=== PATIENT | female | born 1960 | race Caucasian/White ===

== ENCOUNTER 2020-01-30 15:24 | Emergency (ER) | payer OTHER, SELFPAY ==
--- NOTE | 2020-01-30 16:11 | ED_ITS ---
HPI - URI/Sore Throat General Chief Complaint: Upper Respiratory Symptoms Stated Complaint: SORETHROAT,COUGH Time Seen by Provider: 01/30/20 16:11 Source: patient Mode of arrival: ambulatory Limitations: no limitations History of Present Illness MD elicited complaint: cough and sore throat Onset (ago): day(s) (3) Consistency: constant Severity: mild Description of mucous: clear Able to tolerate fluids by mouth: Yes Exacerbating factors: swallowing Relieving factors: nothing Associated symptoms: sore throat and cough Treatments prior to arrival: none Related Data Allergies Allergy/AdvReac Type Severity Reaction Status Date / Time buspirone [BUSPIRONE] Allergy Intermediate CHEST PAIN Unverified 12/24/19 15:08 Penicillins Allergy Mild ITCHING Unverified 12/24/19 15:08 acetaminophen [Percocet] Allergy Unknown Verified 09/04/18 00:00 amlodipine Allergy Unknown Verified 09/04/18 00:00 glimepiride [GLIMEPIRIDE] Allergy Unknown UNKNOWN Unverified 12/24/19 15:08 mirtazapine [MIRTAZAPINE] Allergy Unknown UNKNOWN Unverified 12/24/19 15:08 morphine [MORPHINE] Allergy Unknown FEELS WEAK Unverified 12/24/19 15:08 penicillin G Allergy Unknown Verified 09/04/18 00:00 penicillin V Allergy Unknown Verified 07/24/18 00:00 pravastatin [Pravachol] Allergy Unknown Verified 07/24/18 00:00 sertraline [SERTRALINE] Allergy Unknown UNKNOWN Unverified 12/24/19 15:08 vilazodone [Viibryd] Allergy Unknown Verified 09/04/18 00:00 oxycodone [From PERCOCET] AdvReac Unknown MAKES HER Unverified 12/24/19 15:08 FEEL FUNNY wilner inhibitors Allergy Unknown Uncoded 07/24/18 00:00 Review of Systems Review of Systems: Constitutional : no Fever, no Chills, no fatigue, no Malaise ENT/Mouth : positive sore throat, positive runny nose Eyes: No Discharge Cardiovascular : No Chest Pain, No SOB Respiratory : pos Cough, No Sputum Gastrointestinal : No Nausea, No Vomiting, No Diarrhea Genitourinary : No Dysuria, No Urinary Frequency Musculoskeletal : positive Myalgia Skin : No rash Neuro : No Headache PMFSH Past Medical History Medical History (Updated 01/30/20 @ 16:23 by Diana Metzger DO) Anxiety Bronchitis Depression Diabetes HTN (hypertension) Surgical History (Updated 01/30/20 @ 16:23 by Diana Metzger DO) Previous back surgery Social History Social History (Updated 01/30/20 @ 16:22 by Diana Metzger DO) Smoking Status: Never smoker Use of substances other than those prescribed or required for medical reasons: No Advance Directives: No Advance Directives Information Provided: No Physical Exam Vital Signs: Appearance: Alert. Oriented X3. No acute distress. Eyes: Pupils equal, round and reactive to light. ENT: Pharynx normal. Neck: Normal inspection. Neck supple. CVS: Normal heart rate and rhythm. Pulses normal. Respiratory: No respiratory distress. Breath sounds normal. Abdomen: Soft and nontender. Skin: Skin warm and dry. Normal skin color. Normal skin turgor. Extremities: No lower extremity edema. No calf ttp Neuro: Oriented X 3. No motor deficit. No sensory deficit. MDM - URI/Sore Throat MDM Narrative Medical decision making narrative: 59 yo female with sore throat and cough x 3 days, no problems breathing, no sick contacts, given age and complaint will obtain CXR to r/o pneumonia and COVID swab, patient is not toxic and no resp distress Discharge Plan Discharge Clinical Impression: Upper respiratory infection Qualifiers: URI type: unspecified viral URI Qualified Code(s): J06.9 - Acute upper respiratory infection, unspecified Patient Disposition: Home, Self-Care Instructions: Viral Syndrome (ED), COVID-19 (Coronavirus Disease 2019) (ED) Additional Instructions: you were tested for COVID we will call you with results in 2 to 4 days, wear a mask, socially distance Referrals: Physician,Unknown [Primary Care Provider] - 2 days (if not better) Print Language: Tristanian
--- NOTE | 2020-01-30 16:17 | XR_ITS ---
EXAMINATION: XR chest 1V CLINICAL INFORMATION: Reason for Exam cough COMPARISON: 06/08/2019 TECHNIQUE: Portable chest x-ray marked 4:23 PM Tubes and lines: None Lungs and Maci: Both lungs are clear. Pleura: Normal. Costophrenic angles are sharp. No pneumothorax. Heart and mediastinum: The mediastinum is within normal limits.. Bones: Skeletal structures included are normal for patient's age. XR/XR chest 1V IMPRESSION: No radiographic evidence of pneumonia. If patient remain symptomatic may consider correlation with follow-up CT.
[2020-01-30 16:25] VITALS: BP 194/91; PULSE 81; RESP 18; TEMP 37.3; O2SAT 98; BMI 33.1
--- NOTE | 2020-01-30 17:00 | PC.NURSE ---
cxr performed, covid swab done, pt waiting for dc
[2020-01-30 17:08] VITALS: BP 163/80; PULSE 78; RESP 17; TEMP 37.1
--- NOTE | 2020-01-30 17:13 | PC.NURSE ---
awaiting cap sizer to discharge patient
== END 2020-01-30 17:22 | disposition home or self-care (01) ==
LOC: HO.ED 16:19
PROVIDERS: Emergency Provider Emergency Medicine
DX: J06.9 Acute upper respiratory infection, unspecified (principal); J02.9 Acute pharyngitis, unspecified; Z20.828 Contact with and (suspected) exposure to other viral communicable diseases
CPT/HCPCS: 71045; 87635; 99283; 99284

== ENCOUNTER 2020-02-29 15:02 | Outpatient (REF) | payer OTHER, SELFPAY ==
--- NOTE | 2020-02-29 15:11 | MM_ITS ---
EXAMINATION: MM SCREENING DIGITAL BREAST TOMOSYNTHESIS, BILATERAL CLINICAL INFORMATION: Screening. Asymptomatic. Prior history reduction mammoplasty 2007. The lifetime risk of breast cancer based on the Tyrer-Cuzick Model is 5%. COMPARISON: Mammography: 02/23/2019, 02/21/2018, 02/05/2017 TECHNIQUE: Digital breast tomosynthesis is performed in both the craniocaudal and mediolateral oblique views along with computer-aided detection (CAD). Synthesized 2D images are generated from the tomosynthesis. FINDINGS: There are scattered areas of fibroglandular density (ACR BI-RADS breast composition Category b). Parenchymal pattern is similar to prior studies. There is stable minor background scarring similar to prior exams consistent with the history of remote reduction mammoplasty. There is no developing density or interval mass or architectural abnormality or abnormal calcifications. The axilla are unremarkable. MM/MM tomosynthesis screening BI IMPRESSION: No mammographic evidence of malignancy. ASSESSMENT: BI-RADS 2: Benign RECOMMENDATION: Routine annual mammography screening. This patient's information was entered into a reminder system with a target due date for their next mammogram.
== END 2020-02-29 15:03 | disposition home or self-care (01) ==
LOC: HO.MAMMO 15:02
PROVIDERS: PCP Internal Medicine Sports Medicine; Visit Provider Internal Medicine Sports Medicine
DX: Z12.31 Encounter for screening mammogram for malignant neoplasm of breast (principal)
CPT/HCPCS: 77063; 77067

== ENCOUNTER 2020-06-08 14:36 | Outpatient (REF) | payer OTHER, SELFPAY ==
[2020-06-08 15:30] LABS: MANUAL DIFF FLAG NO
[2020-06-08 15:39] LABS: Basophils Percent Auto 0.5 % (0-2); Eosinophils Absolute Auto 0.2 X10*3/uL (0.0-0.4); Eosinophils Percent Auto 2.1 % (0-4); Hematocrit 39.9 % (37-47); Hemoglobin 12.4 g/dl (12.0-16.0); Imm Gran Abs Auto 0.03 X10*3/uL (0.00-0.03); Imm Gran Pct Auto 0.4 % (0.0-0.4); Lymphocytes Absolute Auto 1.9 X10*3/uL (1.2-4.9); Lymphocytes Percent Auto 24.3 % (20-40); Mean Corpuscular HGB Conc 31.1 g/dl (31.0-35.0); Mean Corpuscular Hemoglobin 28.2 pg (27.0-33.0); Mean Corpuscular Volume 90.9 fL (80-98); Mean Platelet Volume 12.1 fL (9.4-12.3); Monocytes Absolute Auto 0.6 X10*3/uL (0.1-1.2); Monocytes Percent Auto 7.9 % (2-11); Neutrophils Percent Auto 64.8 % (45-73); Platelet Count 253 X10*3/uL (160-400); Red Blood Count 4.39 X10*6/uL (4.20-5.50); Red Cell Distribution Width 13.8 % (11.0-16.0); White Blood Count 7.7 X10*3/uL (4.8-10.8)
[2020-06-08 15:58] LABS: Anion Gap 9 (12-20); Blood Urea Nitrogen 14 mg/dL (9-16); Carbon Dioxide 31 mmol/L (22-29); Chloride 100 mmol/L (96-108); Estimated Glomerular Filt Rate > 60; Glucose Random 216 mg/dL (60-115); Potassium 4.3 mmol/L (3.3-5.1); Sodium 136 mmol/L (135-145)
[2020-06-08 16:32] LABS: Erythrocyte Sedimentation Rate 28 MM/HR (0-20)
== END 2020-06-08 14:37 | disposition home or self-care (01) ==
LOC: HO.LAB 14:36
PROVIDERS: PCP Obstetrics & Gynecology; Visit Provider Psychiatry & Neurology Neurology
DX: R51.9 Headache, unspecified (principal)
CPT/HCPCS: 36415; 80051; 82565; 82947; 84520; 85025; 85652

== ENCOUNTER 2020-07-20 18:10 | Emergency (ER) | payer OTHER, SELFPAY ==
--- NOTE | 2020-07-20 | ECG_ITS ---
Test Reason : DIZZY Blood Pressure : / mmHG Vent. Rate : 064 BPM Atrial Rate : 064 BPM P-R Int : 146 ms QRS Dur : 082 ms QT Int : 404 ms P-R-T Axes : 025 023 033 degrees QTc Int : 416 ms Normal sinus rhythm Normal ECG When compared with ECG of 02-OCT-2019 16:28, No significant change was found Referred By: Generic ED Physician Electronically Signed By:PAGE GALEAS
--- NOTE | ~2020-07-20 | CT_ITS ---
EXAMINATION: CT HEAD WITHOUT CONTRAST CLINICAL INFORMATION: Headache COMPARISON: CT head 10/02/2019 TECHNIQUE: Contiguous axial imaging was performed from the skull base to vertex without intravenous administration of contrast. Coronal and sagittal reformatted images are performed at the CT scanner. [This CT examination was performed using dose optimization techniques as appropriate, variously including the following: *Automated exposure control *Adjustment of mA and/or kV according to patient size (this includes techniques or standardized protocols for targeted exams where dose is matched to indication/reason for exam; i.e. extremities or head) *Use of iterative reconstruction technique] DLP: 652 mGy-cm. FINDINGS: There is no evidence of acute intracranial hemorrhage or territorial infarction. No abnormal mass-effect or midline shift is seen. Mccarthy to white matter differentiation is well preserved. No extra-axial fluid collections are identified. The ventricles are normal in size. There is no abnormal attenuation within the brain parenchyma. There is no osseous abnormality. The mastoid air cells and visualized portions of the paranasal sinuses are well-aerated. CT/CT head/brain wo con IMPRESSION: No acute intracranial pathology.
[2020-07-20 19:01] VITALS: BP 176/79; PULSE 61; RESP 18; TEMP 36.5; O2SAT 98; BMI 32.8
[2020-07-20 19:22] LABS: Glucose Urine UA NEG (NEG); Leukocyte Esterase Urine NEG (NEG); Nitrite Urine NEG (NEG); Specific Gravity - Urine <= 1.005 (1.005-1.025); Urine Blood NEG (NEG); Urine Ketones NEG (NEG); Urine Protein NEG (NEG-TRACE)
[2020-07-20 19:31] LABS: Color Urine YELLOW
[2020-07-20 19:32] LABS: Appearance Urine CLEAR
--- NOTE | 2020-07-20 21:46 | PC.NURSE ---
PT TO ROOM WITH C/O DIZZINESS . PT ARRIVES ALERT, RESPIRATIONS EASY, N/L, SKIN W/D. PT CHG INTO GOWN AND AWAITING FOR MD'S EVAL.
[2020-07-20 21:56] VITALS: BP 156/59; PULSE 69
[2020-07-20 21:57] VITALS: BP 158/62; BP 168/77; PULSE 65; PULSE 72
[2020-07-20 21:58] VITALS: BP 168/77; PULSE 68; RESP 18; O2SAT 99
--- NOTE | 2020-07-20 22:03 | ED_ITS ---
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 Mode of arrival: ambulatory Limitations: no limitations History of Present Illness HPI Narrative: 60 yo female with HTN, DM, hx of headaches notes persistent w orsening headache R side of head for 6 months now with 2 months or so of dizziness and bilateral LE weakness - denies any recent workups, no CP/SOB MD elicited complaint: dizziness and other (headache) Onset (ago): month(s) (6) Timing: gradual onset and intermittent Severity: moderate Description: lightheadedness, off-balance and difficulty walking History of similar symptoms: No Exacerbating factors: movement/ambulation and change in body position Relieving factors: nothing Associated symptoms: other (headache) Related Data Previous Rx's Medication Instructions Recorded gpljmihkgo-jetzetmpxxiun-zhms 1 tab PO Q6H PRN #20 tab 07/21/20 cyclobenzaprine 10 mg PO TID PRN #14 tab 07/21/20 meclizine 25 mg PO TID PRN #20 tab 07/21/20 Allergies Allergy/AdvReac Type Severity Reaction Status Date / Time buspirone [BUSPIRONE] Allergy Intermediate CHEST PAIN Verified 01/30/20 16:25 Penicillins Allergy Mild ITCHING Verified 01/30/20 16:25 acetaminophen [Percocet] Allergy Unknown Vomiting Verified 01/30/20 16:25 amlodipine Allergy Unknown Chest Pain Verified 01/30/20 16:25 glimepiride [GLIMEPIRIDE] Allergy Unknown UNKNOWN Verified 01/30/20 16:25 mirtazapine [MIRTAZAPINE] Allergy Unknown UNKNOWN Verified 01/30/20 16:25 morphine [MORPHINE] Allergy Unknown FEELS WEAK Verified 01/30/20 16:25 penicillin G Allergy Unknown Itching Verified 01/30/20 16:25 penicillin V Allergy Unknown Itching Verified 01/30/20 16:25 pravastatin [Pravachol] Allergy Unknown Itching Verified 01/30/20 16:25 sertraline [SERTRALINE] Allergy Unknown UNKNOWN Verified 01/30/20 16:25 vilazodone [Viibryd] Allergy Unknown Itching Verified 01/30/20 16:25 oxycodone [From PERCOCET] AdvReac Unknown MAKES HER Verified 01/30/20 16:25 FEEL FUNNY wilner inhibitors Allergy Unknown Unknown Uncoded 01/30/20 16:25 Review of Systems Review of Systems: Constitutional : No Weight loss, No Fever, No Chills, No Fatigue, No Malaise ENT/Mouth : No sore throat, No Rhinorrhea Eyes: No Eye Pain, No Swelling, No Redness Cardiovascular : No Chest Pain, No SOB, No Dyspnea on Exertion, No Orthopnea, No Edema, No Palpitations Respiratory : No Cough, No Sputum, No Wheezing Gastrointestinal : No Nausea, No Vomiting, No Diarrhea, No Constipation, No abdominal Pain, No Hematochezia, No Melena Genitourinary : No Dysuria, No Urinary Frequency, No Hematuria, Musculoskeletal : No joint pain, No Myalgias, No Joint Swelling Skin : No Skin Lesions, No rash Neuro : No Weakness, No Numbness, pos Dizziness, pos Headache Psych : No Anxiety/Panic, No Depression Heme/Lymph: No Bruising, No Bleeding,No Lymphadenopathy Endocrine : No Polyuria, No Polydipsia All other systems reviewed and are negative [facility] Past Medical History Medical History Anxiety Bronchitis Depression Diabetes HTN (hypertension) Surgical History Previous back surgery Social History Social History Alcohol intake: never Smoking Status: Never smoker Smoked in Last 30 Days: No Use of substances other than those prescribed or required for medical reasons: No Advance Directives: No Advance Directives Information Provided: No Physical Exam Vital Signs: Vital Signs: Last Vital Signs Temp 98.4 F 07/20/20 23:35 Pulse 58 07/20/20 23:35 Resp 16 07/20/20 23:35 BP 131/59 L 07/20/20 23:35 Pulse Ox 99 07/20/20 23:35 Body Mass Index 32.8 Appearance: Alert. Oriented X3. No acute distress. Eyes: Pupils equal, round and reactive to light. ENT: Pharynx normal. Neck: Normal inspection. Neck supple. CVS: Normal heart rate and rhythm. Pulses normal. Respiratory: No respiratory distress. Breath sounds normal. Abdomen: Soft and nontender. Skin: Skin warm and dry. Normal skin color. Normal skin turgor. Extremities: No lower extremity edema. No calf ttp Neuro: Oriented X 3. No motor deficit. No sensory deficit. Course Course Course Narrative: orthostatic VS negative neagative workup the patient feels much better, stable for DC MDM - Dizziness MDM Narrative Medical decision making narrative: 60 yo female with HTN, DM here with 6 months of headaches now with dizziness x 2+ months feeling it is hard to walk and then noting that she feels off balance - at this time will need labs, EKG, ortho VS, CT head for mass, PO pain control dispo per results and findings. Lab Data Result diagrams: 07/20/20 23:54 07/20/20 23:54 Labs: Lab Results 07/20/20 07/20/20 07/20/20 Range/Units 19:12 23:54 23:54 WBC 8.9 (4.8-10.8) X10*3/uL RBC 4.64 (4.20-5.50) X10*6/uL Hgb 13.1 (12.0-16.0) g/dl Hct 41.6 (37-47) % MCV 89.7 (80-98) fL MCH 28.2 (27.0-33.0) pg MCHC 31.5 (31.0-35.0) g/dl RDW 13.9 (11.0-16.0) % Plt Count 258 (160-400) X10*3/uL MPV 11.3 (9.4-12.3) fL Immature Gran % (Auto) 0.3 (0.0-0.4) % Neut % (Auto) 63.8 (45-73) % Lymph % (Auto) 26.6 (20-40) % [facility] % (Auto) 7.6 (2-11) % Eos % (Auto) 1.1 (0-4) % Baso % (Auto) 0.6 (0-2) % Lymph # (Auto) 2.4 (1.2-4.9) X10*3/uL [facility] # (Auto) 0.7 (0.1-1.2) X10*3/uL Eos # (Auto) 0.1 (0.0-0.4) X10*3/uL Baso # (Auto) 0.1 (0.0-0.2) X10*3/uL Abs Immat Gran (auto) 0.03 (0.00-0.03) X10*3/uL Absolute Neuts (auto) 5.7 (2.0-8.3) X10*3/uL Absolute Nucleated RBC 0.000 (0.0-0.012) X10*3/uL Nucleated RBC % (auto) 0.0 (0.0-0.2) /100WBC Hold Blue Top SEE NOTE Sodium (135-145) mmol/L Potassium (3.3-5.1) mmol/L Chloride (96-108) mmol/L Carbon Dioxide (22-29) mmol/L Anion Gap (12-20) BUN (9-16) mg/dL Creatinine (0.5-1.4) mg/dL Estim Creat Clear Calc Estimated GFR Random Glucose (60-115) mg/dL Calcium (8.4-10.2) mg/dL Urine Color YELLOW Urine Appearance CLEAR Urine pH 6.0 (5.0-8.0) Ur Specific [place] <= 1.005 (1.005-1.025) Urine Protein NEG (NEG-TRACE) MG/DL Urine Glucose (UA) NEG (NEG) MG/DL Urine Ketones NEG (NEG) MG/DL Urine Blood NEG (NEG) Urine Nitrite NEG (NEG) Ur Leukocyte Esterase NEG (NEG) 07/20/20 Range/Units 23:54 WBC (4.8-10.8) X10*3/uL RBC (4.20-5.50) X10*6/uL Hgb (12.0-16.0) g/dl Hct (37-47) % MCV (80-98) fL MCH (27.0-33.0) pg MCHC (31.0-35.0) g/dl RDW (11.0-16.0) % Plt Count (160-400) X10*3/uL MPV (9.4-12.3) fL Immature Gran % (Auto) (0.0-0.4) % Neut % (Auto) (45-73) % Lymph % (Auto) (20-40) % [facility] % (Auto) (2-11) % Eos % (Auto) (0-4) % Baso % (Auto) (0-2) % Lymph # (Auto) (1.2-4.9) X10*3/uL [facility] # (Auto) (0.1-1.2) X10*3/uL Eos # (Auto) (0.0-0.4) X10*3/uL Baso # (Auto) (0.0-0.2) X10*3/uL Abs Immat Gran (auto) (0.00-0.03) X10*3/uL Absolute Neuts (auto) (2.0-8.3) X10*3/uL Absolute Nucleated RBC (0.0-0.012) X10*3/uL Nucleated RBC % (auto) (0.0-0.2) /100WBC Hold Blue Top Sodium 140 (135-145) mmol/L Potassium 4.2 (3.3-5.1) mmol/L Chloride 104 (96-108) mmol/L Carbon Dioxide 26 (22-29) mmol/L Anion Gap 14 (12-20) BUN 11 (9-16) mg/dL Creatinine 0.74 (0.5-1.4) mg/dL Estim Creat Clear Calc 86.1 Estimated GFR > 60 Random Glucose 197 H (60-115) mg/dL Calcium 9.6 (8.4-10.2) mg/dL Urine Color Urine Appearance Urine pH (5.0-8.0) Ur Specific [place] (1.005-1.025) Urine Protein (NEG-TRACE) MG/DL Urine Glucose (UA) (NEG) MG/DL Urine Ketones (NEG) MG/DL Urine Blood (NEG) Urine Nitrite (NEG) Ur Leukocyte Esterase (NEG) ECG Data Attestation: I personally reviewed and interpreted this ECG as follows: ECG interpretation date: 07/20/20 ECG interpretation time: 22:05 Interpretation: Rate: 64 Rhythm: NSR Powell: normal Normal P waves. Normal DEZ. Normal QRS complex. ST T wave : normal no STEVEN qTC: normal prior studies: no acute ischemia The study has been interpreted contemporaneously by me. . Discharge Plan Discharge Clinical Impression: Dizziness Acute tension headache Qualifiers: Intractability: not intractable Qualified Code(s): G44.209 - Tension-type headache, unspecified, not intractable Patient Disposition: Home, Self-Care Instructions: Acute Headache (ED), Dizziness (ED) Additional Instructions: return to ED for any worsening symptoms or concerns Prescriptions: New cyclobenzaprine 10 mg tablet 10 mg PO TID PRN (Reason: muscle spasm) Qty: 14 RF: 0 xicwlyvjzs-fajgdwzddxqdj-aikd 50-325-40 mg tablet 1 tab PO Q6H PRN (Reason: pain) Qty: 20 RF: 0 meclizine 25 mg tablet 25 mg PO TID PRN (Reason: dizziness) Qty: 20 RF: 0 Referrals: Andrea Sommer MD [Primary Care Provider] - 2 days (if not better) Print Language: Mongolian
[2020-07-20] MEDS: Butalb/Acetamin/Caff 50/325/40 TABLET 1 TAB PO (23:09)
[2020-07-20 23:35] VITALS: BP 131/59; PULSE 58; RESP 16; TEMP 36.9; O2SAT 99
--- NOTE | 2020-07-20 23:38 | PC.NURSE ---
LABS DRAWN AT THIS TIME.
[2020-07-21 00:03] LABS: MANUAL DIFF FLAG NO
[2020-07-21 00:04] LABS: Basophils Absolute Auto 0.1 X10*3/uL (0.0-0.2); Basophils Percent Auto 0.6 % (0-2); Eosinophils Absolute Auto 0.1 X10*3/uL (0.0-0.4); Eosinophils Percent Auto 1.1 % (0-4); Hematocrit 41.6 % (37-47); Hemoglobin 13.1 g/dl (12.0-16.0); Imm Gran Abs Auto 0.03 X10*3/uL (0.00-0.03); Imm Gran Pct Auto 0.3 % (0.0-0.4); Lymphocytes Absolute Auto 2.4 X10*3/uL (1.2-4.9); Lymphocytes Percent Auto 26.6 % (20-40); Mean Corpuscular HGB Conc 31.5 g/dl (31.0-35.0); Mean Corpuscular Hemoglobin 28.2 pg (27.0-33.0); Mean Corpuscular Volume 89.7 fL (80-98); Mean Platelet Volume 11.3 fL (9.4-12.3); Monocytes Absolute Auto 0.7 X10*3/uL (0.1-1.2); Monocytes Percent Auto 7.6 % (2-11); Neutrophils Absolute Auto 5.7 X10*3/uL (2.0-8.3); Neutrophils Percent Auto 63.8 % (45-73); Platelet Count 258 X10*3/uL (160-400); Red Blood Count 4.64 X10*6/uL (4.20-5.50); Red Cell Distribution Width 13.9 % (11.0-16.0); White Blood Count 8.9 X10*3/uL (4.8-10.8)
[2020-07-21 00:30] LABS: Anion Gap 14 (12-20); Blood Urea Nitrogen 11 mg/dL (9-16); Calcium 9.6 mg/dL (8.4-10.2); Carbon Dioxide 26 mmol/L (22-29); Chloride 104 mmol/L (96-108); Creatinine Clr Calc Pharmacy 86.1; Estimated Glomerular Filt Rate > 60; Glucose Random 197 mg/dL (60-115); Potassium 4.2 mmol/L (3.3-5.1); Sodium 140 mmol/L (135-145)
== END 2020-07-21 01:10 | disposition home or self-care (01) ==
PROVIDERS: Emergency Provider Emergency Medicine; PCP Internal Medicine
DX: R42 Dizziness and giddiness (principal); G44.209 Tension-type headache, unspecified, not intractable; I10 Essential (primary) hypertension; E11.9 Type 2 diabetes mellitus without complications; Z79.899 Other long term (current) drug therapy
CPT/HCPCS: 36415; 70450; 80048; 81003; 85025; 93005; 99284; 99285

== ENCOUNTER → 2020-07-26 13:55 | Outpatient (REF) | payer OTHER, SELFPAY ==
--- NOTE | 2020-07-26 14:00 | CA_ITS ---
Transthoracic Echocardiogram Patient (Last, First, Middle): Nina Cooper V Gender: Female Date of : 1960 Age: 60 Procedure Date: 07/26/2020 Procedure Type: Transthoracic Echocardiogram Location: OP Height: 165.1 cm Weight: 86.64 kg BSA: 1.94 m2 Heart Rate: bpm BP: 134 / 80 mmHg Discharge Rn: Referring MD: Dwayne Curry MD Symptoms: I34.0 NON RHEUMATIC MITRAL REGURG I10 HTN Study Quality: Good ECG Rhythm: Sinus Conclusions: - The left ventricular systolic function is normal. The visually estimated ejection fraction is between 60-65%. - There is mild mitral valve regurgitation. Findings Left Ventricle Normal left ventricular cavity size. There is mildly increased left ventricular wall thickness. The left ventricular systolic function is normal. The visually estimated ejection fraction is between 60-65%. There is no evidence of regional wall motion abnormalities. Diastolic function is indeterminate on the basis of available data. Right Ventricle Normal right ventricular cavity size and systolic function. Atria Both atria are normal in size. Aortic Valve There is a normal trileaflet aortic valve. There is no aortic valve stenosis. There is no aortic valve regurgitation. Mitral Valve The mitral valve appears normal. There is mild mitral valve regurgitation. There is no mitral valve stenosis. Pulmonic Valve The pulmonic valve was not well visualized. Tricuspid Valve Normal tricuspid valve structure. There is trace tricuspid valve regurgitation. The pulmonary artery systolic pressure is normal. Great Vessels The aortic annulus, sinuses of valsalva, and asc aorta are normal in size. Venous The inferior vena cava is normal in size and collapses greater than 50% with inspiration. Pericardium/Pleural There is no evidence of pericardial effusion. Prior Study Comparison Changes noted compared to prior study dated: 07/16/2018. Mitral regurgitation appears less prominent. Measurements 2D Linear Measurements IVSd: 1.08 0.6-0.9/0.6-1.0 cm LVIDd: 4.91 3.9-5.3/4.2-5.9 cm LVIDd Index: 2.53 2.4-3.2/2.2-3.1 cm/m2 LVIDs: 2.52 2.0-3.6 cm LVPWd: 1.06 0.7-1.1 cm Ao Root: 2.90 2.1-3.5 cm LA Diam: 4.10 2.7-3.8/3.0-4.0 cm LAIDs Index: 2.11 1.5-2.3 cm/m2 LV Mass: 241.31 67-162/88-224 g LV Mass Index: 124.39 43-95/49-115 g/m2 LVOT Diam: 2.10 3.0+(-)1.3 cm Mitral Valve MV Pk E: 0.65 MV PK A: 0.98 MV Decel Time: 201.00 E/A: 0.70 PHT: 59.00 MVA PHT: 3.73 Decel [place]: 3.21 Aortic Valve AoV Pk Claudio: 1.39 AoV Mn Claudio: 0.76 AoV VTI: 0.32 AoV Pk Grad: 8.00 Aov Mn Grad: 3.00 CK Cont.VTI: 2.60 LVOT LVOT Pk Claudio: 0.98 LVOT Mn Claudio: 0.59 LVOT VTI: 0.24 LVOT Pk Grad: 4.00 LVOT Mn Grad: 2.00 LVOT Diam: 2.10 LVOT Area: 3.46 Diastolic Function MV Pk E: 0.65 MV Pk A: 0.98 E/A: 0.70 Tricuspid Valve TR Pk Claudio: 2.45 TR Pk Grad: 24.00 RA Press: 3.00 RVSP: 27.00 Great Vessels Aorta Ao Root-2D: 2.90 2.0-3.7 cm Ao Asc: 2.90 2.1-3.4 cm Pulmonary Valve PV Pk Claudio: 0.96 Peak PV Grad: 4.00 Updated in Other Vendor System with Status of Final Dwayne Curry MD electronically signed on 07/27/2020 12:09:30 PM with status of Final
== END ==
LOC: HO.CARD 13:55
PROVIDERS: PCP Internal Medicine Sports Medicine; Visit Provider Internal Medicine
DX: I34.0 Nonrheumatic mitral (valve) insufficiency (principal); I10 Essential (primary) hypertension
CPT/HCPCS: 93306

== ENCOUNTER → 2020-08-02 13:50 | Outpatient (BNVA) | payer OTHER, SELFPAY | PROVIDERS: PCP Internal Medicine; Visit Provider Internal Medicine | DX: I34.0 Nonrheumatic mitral (valve) insufficiency (principal); E11.8 Type 2 diabetes mellitus with unspecified complications; I10 Essential (primary) hypertension; E78.5 Hyperlipidemia, unspecified | CPT/HCPCS: 99212 ==

== ENCOUNTER → 2020-12-06 14:01 | Outpatient (BNVA) | payer OTHER, SELFPAY | PROVIDERS: PCP Internal Medicine; Visit Provider Internal Medicine | DX: I34.0 Nonrheumatic mitral (valve) insufficiency (principal); I10 Essential (primary) hypertension; E78.5 Hyperlipidemia, unspecified; E11.8 Type 2 diabetes mellitus with unspecified complications | CPT/HCPCS: 93005; 99212 ==

== ENCOUNTER → 2021-03-14 13:49 | Outpatient (BNVA) | payer OTHER, SELFPAY | PROVIDERS: PCP Internal Medicine; Referring Provider Internal Medicine; Visit Provider Internal Medicine | DX: E78.5 Hyperlipidemia, unspecified (principal); I34.0 Nonrheumatic mitral (valve) insufficiency; I10 Essential (primary) hypertension; E11.8 Type 2 diabetes mellitus with unspecified complications | CPT/HCPCS: 99212 ==

== ENCOUNTER 2021-03-16 12:55 | Outpatient (REF) | payer OTHER, SELFPAY ==
--- NOTE | ~2021-03-16 | MM_ITS ---
EXAMINATION: MM SCREENING DIGITAL BREAST TOMOSYNTHESIS, BILATERAL CLINICAL INFORMATION: Screening. Asymptomatic. The lifetime risk of breast cancer based on the Tyrer-Cuzick Model is 5.7%. COMPARISON: Mammography: February 29, 2020 and studies dating back to December 28, 2013 TECHNIQUE: Digital breast tomosynthesis is performed in both the craniocaudal and mediolateral oblique views along with computer-aided detection (CAD). Synthesized 2D images are generated from the tomosynthesis. FINDINGS: The breasts are almost entirely fatty (ACR BI-RADS breast composition Category a). There are no significant masses, abnormal calcifications, or other abnormalities. MM/MM tomosynthesis screening BI IMPRESSION: There are no significant changes from prior study. ASSESSMENT: BI-RADS 1: Negative RECOMMENDATION: Routine annual mammography screening. This patient's information was entered into a reminder system with a target due date for their next mammogram.
== END 2021-03-16 12:56 | disposition home or self-care (01) ==
LOC: HO.MAMMO 12:55
PROVIDERS: Visit Provider Internal Medicine
DX: Z12.31 Encounter for screening mammogram for malignant neoplasm of breast (principal)
CPT/HCPCS: 77063; 77067

== ENCOUNTER 2021-03-21 18:04 | Outpatient (REF) | payer OTHER, SELFPAY ==
[2021-03-21 18:47] LABS: Influenza A PCR NEGATIVE (Negative); Influenza B PCR NEGATIVE (Negative); Resp Syncy Virus RNA Qual PCR NEGATIVE (Negative); SARS COV2 PCR INHOUSE POSITIVE (Negative)
== END 2021-03-21 18:05 | disposition home or self-care (01) ==
LOC: HO.LNP 18:04
PROVIDERS: Visit Provider Internal Medicine
DX: Z20.822 Contact with and (suspected) exposure to COVID-19 (principal); R43.9 Unspecified disturbances of smell and taste
CPT/HCPCS: 0241U

== ENCOUNTER 2021-03-29 22:22 | Emergency (ER) | payer OTHER, SELFPAY ==
--- NOTE | ~2021-03-29 | XR_ITS ---
EXAMINATION: XR CHEST CLINICAL INFORMATION: Dyspnea. COMPARISON: Chest radiograph dated from 01/30/2020. TECHNIQUE: PA view of the chest was obtained. FINDINGS: Unchanged appearance of the cardiomediastinal silhouette. Platelike opacities in the lower lobes are in favor to represent subsegmental atelectasis or parenchymal scarring. Mild increased interstitial markings. No focal airspace opacities, pleural effusions or pneumothorax. No acute osseous abnormalities. XR/XR chest 1V IMPRESSION: Mildly increased interstitial markings which could be related with an atypical infectious or inflammatory process of the small airways in the appropriate clinical context.
--- NOTE | 2021-03-29 22:47 | ECG_ITS ---
Test Reason : CHEST PAIN Blood Pressure : / mmHG Vent. Rate : 084 BPM Atrial Rate : 084 BPM P-R Int : 136 ms QRS Dur : 078 ms QT Int : 362 ms P-R-T Axes : 047 -09 032 degrees QTc Int : 427 ms Artifact in tracing Normal sinus rhythm Likely normal EKG When compared with ECG of 20-JUL-2020 21:58, No significant changes seen Referred By: Generic ED Physician Electronically Signed By:PAGE GALEAS
[2021-03-29 22:54] VITALS: BP 136/66; PULSE 90; RESP 20; TEMP 37.9; O2SAT 96; BMI 31.6
--- NOTE | 2021-03-30 00:18 | ED.URI ---
HPI - URI/Sore Throat General Chief Complaint: Upper Respiratory Symptoms Stated Complaint: flu like symptoms Time Seen by Provider: 03/29/21 23:03 Source: patient Mode of arrival: ambulatory Limitations: no limitations History of Present Illness HPI Narrative: Patient 61 years old diabetic not vaccinated against COVID-19 been sick since 03/19 got checked positive for COVID-19 on 03/21 since then patient has been coughing her is also sick with same duration slight shortness of breath on exertion low-grade fever saturating 96% at room air. Patient does have history of bronchitis off and on no diagnosed lung conditions Related Data Home Medications Medication Instructions Recorded Confirmed clonazepam 1 mg tablet 1 mg PO BEDTIME PRN 08/02/20 03/14/21 metformin 500 mg tablet 500 mg PO BID 08/02/20 03/14/21 nebivolol 10 mg tablet 10 mg PO DAILY tab 08/02/20 03/14/21 Previous Rx's Medication Instructions Recorded albuterol sulfate 90 mcg/actuation 1 inh INHALATION QID #6.7 g 03/21/21 aerosol inhaler azithromycin 250 mg tablet See Rx Instructions PO .COMPLEX #6 03/21/21 tab albuterol sulfate 90 mcg/actuation 2 puff INHALATION Q4-6H PRN #8.5 g 03/30/21 aerosol inhaler (ProAir HFA) codeine 10 mg-guaifenesin 100 mg/5 10 ml PO Q6H PRN #237 ml 03/30/21 mL oral liquid dexamethasone 6 mg tablet 6 mg PO DAILY #7 tab 03/30/21 (Decadron) Allergies Allergy/AdvReac Type Severity Reaction Status Date / Time Penicillins Allergy Mild ITCHING Verified 03/29/21 22:43 glimepiride [GLIMEPIRIDE] Allergy Unknown UNKNOWN Verified 03/29/21 22:43 mirtazapine [MIRTAZAPINE] Allergy Unknown UNKNOWN Verified 03/29/21 22:43 pravastatin [Pravachol] Allergy Unknown Itching Verified 03/29/21 22:43 sertraline [SERTRALINE] Allergy Unknown UNKNOWN Verified 03/29/21 22:43 vilazodone [Viibryd] Allergy Unknown Itching Verified 03/29/21 22:43 buspirone [BUSPIRONE] AdvReac Intermediate CHEST PAIN Verified 03/29/21 22:43 amlodipine AdvReac Unknown Chest Pain Verified 03/29/21 22:43 morphine [MORPHINE] AdvReac Unknown FEELS WEAK Verified 03/29/21 22:43 oxycodone [From PERCOCET] AdvReac Unknown MAKES HER Verified 03/29/21 22:43 FEEL FUNNY wilner inhibitors Allergy Unknown Unknown Uncoded 03/14/21 13:58 Review of Systems Review of Systems: Yes all other systems are reviewed and are negative [facility] Past Medical History Medical History Anxiety Bronchitis Depression Diabetes Essential hypertension HTN (hypertension) Non-rheumatic mitral regurgitation Other and unspecified hyperlipidemia Type 2 diabetes mellitus with unspecified complications Surgical History History of tubal ligation Previous back surgery Family History Family History Father HTN (hypertension) Stroke Mother HTN (hypertension) Stroke Social History Social History Alcohol intake: never Patient Tobacco Use Status: Never used Tobacco Advance Directives: No Physical Exam Vital Signs: Vital Signs: Last Vital Signs Temp 100.2 F 03/29/21 22:54 Pulse 90 03/29/21 22:54 Resp 20 03/29/21 22:54 BP 136/66 03/29/21 22:54 Pulse Ox 96 03/29/21 22:54 BMI result Body Mass Index 31.6 Appearance: Alert. Oriented X3. No acute distress. Frequent dry cough Eyes: No pallor/ icterus ENT: Pharynx normal. Oral Mucosa moist Neck: Normal inspection. Neck supple. CVS: Normal heart rate and rhythm. Pulses normal. Respiratory: No respiratory distress. Equal air entry bilateral, no wheezing/rales/rhonchi Abdomen: Soft and nontender. Bowel sounds are present, Skin: Skin warm and dry. Normal skin color. Normal skin turgor. Extremities: No lower extremity edema. No calf tenderness Neuro: Oriented X 3. No motor deficit. MDM - URI/Sore Throat MDM Narrative Medical decision making narrative: Patient with stable vitals and had stable labs in the past COVID-19 positive already 11 day of illness chest x-ray showed mild infiltrate. At this time patient is saturating 96% at room air does not look like any distress will discharge patient home on Decadron and advised to use albuterol inhaler return to the ER if worsening of shortness of breath keep social distancing Lab Data Attestation: I reviewed the patient's lab results. Labs: Lab Results 03/30/21 Range/Units 00:30 POC Glucose 126 H (60-115) mg/dL Discharge Plan Discharge Clinical Impression: COVID-19 Patient Disposition: Home, Self-Care Instructions: COVID-19 (Coronavirus Disease 2019) (ED) Additional Instructions: Keep social distancing Medication as prescribed Increase metformin to 2 tablets in the morning and 1 tablet in the evening if blood sugar is higher than 200 while taking Decadron Report to the ER if worsening of shortness of breath Mantener el distanciamiento social Medicaci?n seg?n lo prescrito Aumente la metformina a 2 comprimidos por la ma?key y 1 comprimido por la noche si el nivel de az?car en davey es superior a 200 mientras heather Decadron. Informe a la marlyn de emergencias si empeora la dificultad para respirar Prescriptions: New dexamethasone [Decadron] 6 mg tablet 6 mg PO DAILY Qty: 7 RF: 0 codeine-guaifenesin 10-100 mg/5 mL liquid 10 ml PO Q6H PRN (Reason: cough) Qty: 237 RF: 0 albuterol sulfate [ProAir HFA] 90 mcg/actuation HFA aerosol inhaler 2 puff inhalation Q4-6H PRN (Reason: shortness of breath or wheezing) Qty: 8.5 RF: 0 No Action azithromycin 250 mg tablet See Rx Instructions PO .COMPLEX Qty: 6 RF: 0 albuterol sulfate 90 mcg/actuation HFA aerosol inhaler 1 inh inhalation QID Qty: 6.7 RF: 1 Bystolic 10 mg tablet 10 mg PO DAILY RF: 0 clonazepam 1 mg tablet 1 mg PO BEDTIME PRNRF: 0 metformin 500 mg tablet 500 mg PO BID RF: 0
[2021-03-30 00:36] LABS: Glucose, Whole Blood 126 mg/dL (60-115)
[2021-03-30] MEDS: Benzonatate 100 MG CAPSULE 200 MG PO (01:06)
[2021-03-30] MEDS: dexAMETHasone 6 MG TABLET PO (01:07)
[2021-03-30] MEDS: Albuterol Sulfate 90 MCG 8 GM INHALER 4 PUFF INHALE (01:07)
== END 2021-03-30 01:21 | disposition home or self-care (01) ==
PROVIDERS: Emergency Provider Internal Medicine; PCP Internal Medicine
DX: U07.1 COVID-19 (principal); R05.9 Cough, unspecified; R50.9 Fever, unspecified; Z79.899 Other long term (current) drug therapy
CPT/HCPCS: 71045; 82947; 93005; 99283; 99284; J8540

== ENCOUNTER 2021-04-03 10:56 | Emergency (ER) | payer OTHER, SELFPAY ==
--- NOTE | ~2021-04-03 | XR_ITS ---
EXAMINATION: XR CHEST CLINICAL INFORMATION: Shortness of breath. COMPARISON: 03/29/2021 portable chest. TECHNIQUE: Frontal view of the chest was obtained. FINDINGS: No significant abnormality is noted involving the heart, lungs, mediastinum, bony thorax or soft tissues. XR/XR chest 1V IMPRESSION: No acute cardiopulmonary process.
[2021-04-03 11:31] VITALS: BP 180/79; PULSE 74; RESP 18; TEMP 37.1; O2SAT 97; BMI 31.6
--- NOTE | 2021-04-03 12:41 | ED.URI ---
HPI - URI/Sore Throat General Chief Complaint: Upper Respiratory Symptoms Stated Complaint: COVID Symptoms Time Seen by Provider: 04/03/21 12:41 Source: patient Mode of arrival: ambulatory Limitations: no limitations History of Present Illness HPI Narrative: 61-year-old female past medical history significant for anxiety, depression, hypertension, diabetes presenting to the emergency department with complaints of shortness of breath and dizziness X 14 days. Patient tells me was is COVID positive, and she just wanted to ensure that she was okay. She tells me symptoms have been present for a while and they are better than before. She was confirmed positive on 03/21/2021 she states. She tells me that her is very sick with COVID-19, and she has been very worried and anxious recently. She tells me that she knows that her blood pressure is high, she has been taking her pills. He tells me that all these symptoms are worse now because she is also anxious. She reports that the shortness of breath is worse with exertion. She tells me at times she feels dizzy, she is not dizzy at this moment. She denies chest pain, pleuritic chest pain, pain with deep inspiration, fevers, chills, nausea, vomiting, abdominal pain, calf pain, weakness, dizziness, vision changes, headache. MD elicited complaint: other (Fatigue) Pertinent past history: other (COVID + on 03/21) Onset (ago): day(s) (14) Consistency: constant and improved Severity: mild Able to tolerate fluids by mouth: Yes Exacerbating factors: nothing Relieving factors: nothing Context: sick contacts ( is sick ) Associated symptoms: shortness of breath Treatments prior to arrival: cold medicine and other (steroids) Related Data Home Medications Medication Instructions Recorded Confirmed clonazepam 1 mg tablet 1 mg PO BEDTIME PRN 08/02/20 03/14/21 metformin 500 mg tablet 500 mg PO BID 08/02/20 03/14/21 nebivolol 10 mg tablet 10 mg PO DAILY tab 08/02/20 03/14/21 Previous Rx's Medication Instructions Recorded albuterol sulfate 90 mcg/actuation 1 inh INHALATION QID #6.7 g 03/21/21 aerosol inhaler azithromycin 250 mg tablet See Rx Instructions PO .COMPLEX #6 03/21/21 tab albuterol sulfate 90 mcg/actuation 2 puff INHALATION Q4-6H PRN #8.5 g 03/30/21 aerosol inhaler (ProAir HFA) codeine 10 mg-guaifenesin 100 mg/5 10 ml PO Q6H PRN #237 ml 03/30/21 mL oral liquid dexamethasone 6 mg tablet 6 mg PO DAILY #7 tab 03/30/21 (Decadron) Allergies Allergy/AdvReac Type Severity Reaction Status Date / Time Penicillins Allergy Mild ITCHING Verified 04/03/21 11:31 glimepiride [GLIMEPIRIDE] Allergy Unknown UNKNOWN Verified 04/03/21 11:31 mirtazapine [MIRTAZAPINE] Allergy Unknown UNKNOWN Verified 04/03/21 11:31 pravastatin [Pravachol] Allergy Unknown Itching Verified 04/03/21 11:31 sertraline [SERTRALINE] Allergy Unknown UNKNOWN Verified 04/03/21 11:31 vilazodone [Viibryd] Allergy Unknown Itching Verified 04/03/21 11:31 buspirone [BUSPIRONE] AdvReac Intermediate CHEST PAIN Verified 04/03/21 11:31 amlodipine AdvReac Unknown Chest Pain Verified 04/03/21 11:31 morphine [MORPHINE] AdvReac Unknown FEELS WEAK Verified 04/03/21 11:31 oxycodone [From PERCOCET] AdvReac Unknown MAKES HER Verified 04/03/21 11:31 FEEL FUNNY wilner inhibitors Allergy Unknown Unknown Uncoded 03/14/21 13:58 Review of Systems Review of Systems: Constitutional : No Weight loss, No Fever, No Chills, + Fatigue, + Malaise ENT/Mouth : No sore throat, No Rhinorrhea Eyes: No Eye Pain, No Swelling, No Redness Cardiovascular : No Chest Pain, + SOB, No Dyspnea on Exertion, No Orthopnea, No Edema, No Palpitations Respiratory : No Cough, No Sputum, No Wheezing Gastrointestinal : No Nausea, No Vomiting, No Diarrhea, No Constipation, No abdominal Pain, No Hematochezia, No Melena Genitourinary : No Dysuria, No Urinary Frequency, No Hematuria, Musculoskeletal : No joint pain, No Myalgias, No Joint Swelling Skin : No Skin Lesions, No rash Neuro : No Weakness, No Numbness, + Dizziness, No Headache Psych : No Anxiety/Panic, No Depression All other systems reviewed and are negative Yes all other systems are reviewed and are negative [facility] Past Medical History Attestation statement: The following information was validated with the patient. Source: old records reviewed and nursing notes reviewed Medical History Anxiety Bronchitis Depression Diabetes Essential hypertension HTN (hypertension) Non-rheumatic mitral regurgitation Other and unspecified hyperlipidemia Type 2 diabetes mellitus with unspecified complications Surgical History History of tubal ligation Previous back surgery Family History Family History Father HTN (hypertension) Stroke Mother HTN (hypertension) Stroke Social History Social History Alcohol intake: never Patient Tobacco Use Status: Never used Tobacco Advance Directives: No Advance Directives Information Provided: No Patient : No Physical Exam Vital Signs: Vital Signs: Last Vital Signs Temp 98.7 F 04/03/21 11:31 Pulse 74 04/03/21 11:31 Resp 18 04/03/21 11:31 BP 180/79 H 04/03/21 11:31 Pulse Ox 97 04/03/21 11:31 BMI result Body Mass Index 31.6 Vital signs stable, patient noted to be slightly hypertensive however she does have a diagnosis of hypertension. Saturating 97% on room air. Appearance: Alert.? Oriented X3.? No acute distress.? Head: Normocephalic, atraumatic, no step-offs or deformities Eyes: Pupils equal, round and reactive to light.? ENT: Pharynx normal.? Neck: Normal inspection.? Neck supple.? CVS: Normal heart rate and rhythm.? Pulses normal.? Respiratory: No respiratory distress.? Breath sounds normal.? Abdomen: Soft and nontender.? Skin: Skin warm and dry.? Normal skin color.? Normal skin turgor.? Extremities: No lower extremity edema.? No calf ttp. Neagtive homans sign. 5/5 strength to bilateral upper and lower extremities Back: No midline tenderness, no C-spine tenderness, full range of motion, no CVA tenderness bilaterally Neuro: Oriented X 3.? No motor deficit.? No sensory deficit. Course Reevaluation(s) Reevaluation #1: Chest x-ray with no acute cardiopulmonary process seen. Time: 12:46 Reevaluation #2: Respiratory came down to do an ambulatory O2, patient saturated well, remained above 93% the entire time. Patient is very anxious as reported to me by respiratory. She tells them that it is because of her who is very sick. This is likely contributing to patient's hypertension. As well as the fact that patient has not taken her blood pressure medications. At this time if feel as though patient is safe for discharge home. I have given her strict return precautions and have advised her to return with new or worsening symptoms. I have also advised her to follow-up with her primary care provider. I also educated her on using a pulse oximeter which she can buy the pharmacy to monitor her O2 saturation. Comfortable with discharge Time: 13:55 MDM - URI/Sore Throat MDM Narrative Medical decision making narrative: [id number] YO F pmhx anxiety, depression, HTN, DM, DX with COVID-19 on 03/21/2021 presents to the ED with SOB, fatigue, anxiety and vague complaints of dizziness X 14 days. Patient wants to ensure that she is ok.Tells me symptoms are worse when she is anxious like now, mentions her is very sick with COVID-19. Physical examination benign. Patient is speaking in full sentences appears comfortable and is on her phone and speaking on the phone with no issues. Vital signs are stable, saturating well on room air. She noted to be slightly hypertensive however she does have a history of hypertension and didnt take her BP meds this morning. Based off patient history and physical examination unlikely that this is a pulmonary embolism, patient is not hypoxic or tachycardic. PERC score of 1 because of age. However I do not suspect pulmonary embolism. I suspect that patient's symptoms are secondary to COVID 19 viral infection. Plan at this time is to obtain a chest x-ray ambulatory O2 Medical Records Attestation: I reviewed the patient's medical records. Lab Data Attestation: I reviewed the patient's lab results. Imaging Data Chest x-ray: Attestation: I personally reviewed and interpreted this imaging study as follows: Radiologist's impression: FINDINGS: No significant abnormality is noted involving the heart, lungs, mediastinum, bony thorax or soft tissues. XR/XR chest 1V IMPRESSION: No acute cardiopulmonary process. ? Critical Care Time Critical Care Time Critical Care Time: No Discharge Plan Discharge Clinical Impression: Fatigue, Shortness of breath Patient Disposition: Home, Self-Care Instructions: Shortness of Breath (ED), COVID-19 (Coronavirus Disease 2019) (ED) Additional Instructions: Take your medications as prescribed. If you were prescribed antibiotics today, it is important that you take your medication to their entirety, do not skip any doses, do not finish them early. You were COVID + on 03/21/2021. Take Ibuprofen or Tylenol as needed for fevers or body aches. Quarantine for 14 days if you are not vaccinated or for 10 days if you are vaccinated. And 72 hours fever free without medicaiton. Drink plenty of fluids. Follow-up with your primary care provider this week. Return to the emergency department with new or worsening symptoms. In case of emergency call 911 Your chest x-ray today looks good no pneumonia. You can purchase a pulse oximeter at the pharmacy and monitor O2 saturation, return to the emergency department if it goes underneath 94%. [place] cruz medicamentos seg?n lo prescrito. Si le recetaron antibi?ticos hoy, es importante que tome cruz medicamentos en andres totalidad, no se salte ninguna dosis, no los termine temprano. Eras COVID + el 21/03/2021. [place] ibuprofeno o Tylenol seg?n sea necesario para la fiebre o los ayleen corporales. Ponga en cuarentena rosy 14 d?as si no est? vacunado o rosy 10 d?as si est? vacunado. Y 72 horas sin fiebre sin medicaci?n. Beber mucho l?quido. [place] un seguimiento con andres proveedor de atenci?n primaria esta semana. Regrese al departamento de emergencias con s?ntomas nuevos o que empeoran. En aileen de emergencia llame al 911 Andres radiograf?a de t?rax de hoy se ve dino, sin neumon?a. Puede comprar un ox?metro de pulso en la farmacia y monitorear la saturaci?n de O2, regresar al departamento de emergencias si est? por debajo del 94%. Prescriptions: No Action dexamethasone [Decadron] 6 mg tablet 6 mg PO DAILY Qty: 7 RF: 0 codeine-guaifenesin 10-100 mg/5 mL liquid 10 ml PO Q6H PRN (Reason: cough) Qty: 237 RF: 0 albuterol sulfate [ProAir HFA] 90 mcg/actuation HFA aerosol inhaler 2 puff inhalation Q4-6H PRN (Reason: shortness of breath or wheezing) Qty: 8.5 RF: 0 azithromycin 250 mg tablet See Rx Instructions PO .COMPLEX Qty: 6 RF: 0 albuterol sulfate 90 mcg/actuation HFA aerosol inhaler 1 inh inhalation QID Qty: 6.7 RF: 1 Bystolic 10 mg tablet 10 mg PO DAILY RF: 0 clonazepam 1 mg tablet 1 mg PO BEDTIME PRNRF: 0 metformin 500 mg tablet 500 mg PO BID RF: 0 Referrals: Andrea Sommer MD [Primary Care Provider] - 2 days Print Language: [place]
[2021-04-03 13:00] VITALS: O2SAT 93
== END 2021-04-03 14:01 | disposition home or self-care (01) ==
PROVIDERS: Emergency Provider Emergency Medicine; PCP Internal Medicine
DX: R06.02 Shortness of breath (principal); R53.83 Other fatigue; I10 Essential (primary) hypertension; E11.9 Type 2 diabetes mellitus without complications; Z86.16 Personal history of COVID-19
CPT/HCPCS: 71045; 99283

== ENCOUNTER 2023-01-22 12:07 | Outpatient (REF) | payer OTHER, SELFPAY | END 2023-01-22 12:08 | disposition home or self-care (01) | LOC: HO.MAMMO 12:07 | PROVIDERS: PCP Internal Medicine; Visit Provider Internal Medicine | DX: Z12.31 Encounter for screening mammogram for malignant neoplasm of breast (principal) | CPT/HCPCS: 77063; 77067 ==

== ENCOUNTER → 2023-01-22 12:30 | Outpatient (BNV) | payer OTHER, SELFPAY | PROVIDERS: PCP Internal Medicine; Visit Provider Radiology Diagnostic Radiology | DX: Z12.31 Encounter for screening mammogram for malignant neoplasm of breast (principal) | CPT/HCPCS: 77063; 77067 ==

== ENCOUNTER 2023-09-30 14:54 | Emergency (ER) | payer OTHER, SELFPAY ==
--- NOTE | 2023-09-30 15:10 | ED_ITS ---
HPI - URI/Sore Throat General Chief Complaint: Upper Respiratory Symptoms Stated Complaint: + covid runny nose , sore throat , cough Time Seen by Provider: 09/30/23 17:22 Source: patient Mode of arrival: ambulatory Limitations: language barrier History of Present Illness HPI Narrative: 63-year-old female with a past medical history of diabetes and hypertension presents to the emergency department with complaints of nasal congestion and sore throat starting on Saturday evening. She reports she traveled home from [place] on Saturday he began feeling upper respiratory symptoms late Saturday evening. She states she took an [id number] COVID test at home on Saturday which was positive. She states she has been using [id number]-[id number] medications for management of symptoms with moderate relief. She denies any fevers, chills, shortness of breath, chest pain Pertinent positives and negatives discussed in HPI Related Data Home Medications ?Medication ?Instructions ?Recorded ?Confirmed clonazepam 1 mg tablet 1 mg PO BEDTIME PRN 08/02/20 03/14/21 metformin 500 mg tablet 500 mg PO BID 08/02/20 03/14/21 nebivolol 10 mg tablet 10 mg PO DAILY 08/02/20 03/14/21 Previous Rx's ?Medication ?Instructions ?Recorded albuterol sulfate 90 mcg/actuation 1 inh inhalation QID shortness of 03/21/21 aerosol inhaler breath or wheezing #6.7 grams azithromycin 250 mg tablet See Rx Instructions PO .COMPLEX #6 03/21/21 tabs albuterol sulfate 90 mcg/actuation 2 puff inhalation Q4-6H PRN 03/30/21 aerosol inhaler (ProAir HFA) shortness of breath or wheezing #8.5 grams codeine 10 mg-guaifenesin 100 mg/5 10 ml PO Q6H PRN cough #237 mL 03/30/21 mL oral liquid dexamethasone 6 mg tablet 6 mg PO DAILY #7 tabs 03/30/21 (Decadron) benzonatate 100 mg capsule 100 mg PO TID PRN cough 4 days #14 09/30/23 caps Allergies Allergy/AdvReac Type Severity Reaction Status Date / Time Penicillins Allergy Mild ITCHING Verified 09/30/23 15:13 glimepiride [GLIMEPIRIDE] Allergy Unknown UNKNOWN Verified 09/30/23 15:13 mirtazapine [MIRTAZAPINE] Allergy Unknown UNKNOWN Verified 09/30/23 15:13 pravastatin [Pravachol] Allergy Unknown Itching Verified 09/30/23 15:13 sertraline [SERTRALINE] Allergy Unknown UNKNOWN Verified 09/30/23 15:13 vilazodone [Viibryd] Allergy Unknown Itching Verified 09/30/23 15:13 buspirone [BUSPIRONE] AdvReac Intermediate CHEST PAIN Verified 09/30/23 15:13 amlodipine AdvReac Unknown Chest Pain Verified 09/30/23 15:13 morphine [MORPHINE] AdvReac Unknown FEELS WEAK Verified 09/30/23 15:13 oxycodone [From PERCOCET] AdvReac Unknown MAKES HER Verified 09/30/23 15:13 FEEL FUNNY wilner inhibitors Allergy Unknown Unknown Uncoded 03/14/21 13:58 Review of Systems Review of Systems: Yes all other systems are reviewed and are negative PMFSH Past Medical History Medical History Anxiety Bronchitis Depression Diabetes Essential hypertension HTN (hypertension) Non-rheumatic mitral regurgitation Other and unspecified hyperlipidemia Type 2 diabetes mellitus with unspecified complications Surgical History History of tubal ligation Previous back surgery Family History Family History Father HTN (hypertension) Stroke Mother HTN (hypertension) Stroke Social History Social History Alcohol intake: never Patient Tobacco Use Status: Never used Tobacco Advance Directives: No Advance Directives Information Provided: No Do you have a plan to hurt others: No Plan Physical Exam Vital Signs: Vital Signs: Last Vital Signs Temp 98.8 F 09/30/23 18:51 Pulse 89 09/30/23 18:51 Resp 20 09/30/23 18:51 BP 142/78 H 09/30/23 18:51 Pulse Ox 97 09/30/23 18:51 O2 Del Method Room Air 09/30/23 18:51 BMI result Body Mass Index 31.1 Nursing notes and vital signs reviewed. GENERAL APPEARANCE: A&0 x 4, generally well appearing, no acute distress HENMT: Normal to inspection, atraumatic, face symmetrical. Normal external ears, nose, and oropharynx clear. EYE: PERRLA, EOM intact, structures appear normal NECK: Supple without stiffness or restricted ROM. HEART: Normal rate and regular rhythm, normal S1/S2, no M/R/G LUNGS: LS CTA, moving air well. Able to speak in complete sentences. No crackles, wheezes, or rhonchi auscultated BACK: No CVAT, no obvious deformity EXTREMITIES: Moving all extremities without difficulty. Normal capillary refill. NEUROLOGICAL: Alert and oriented, moving all 4 extremities with equal strength. CN not formally tested but appearing grossly intact. Observed to ambulate with normal gait. Cognition normal SKIN: Warm and dry without any lesions, rash, or visible sores Course Course Course Narrative: This is a Rapid Medical Exam performed in triage by Bridget Ramos PA-C. Full HPI, ROS and PE to be performed by primary ED provider. 63 year-old F w/ PMHx HTN, DM, presenting to the ED c/o COVID + from Saturday (2 days) ago, c/o congestion, cough, sore throat. denies SOB/CP PE: talking in complete sentences, uvula midline, oropharynx wnl Plan: viral testing, rapid strep Medical Decision Making Medical Decision Making [facility] Narrative: Old records reviewed for previous imaging, lab studies, ECGs, and notes. Patient was assessed the emergency department with no acute distress or toxicity noted. Nasal serology positive for COVID and throat swab negative for strep. Patient educated to rest, increase her fluid intake, and use [id number] medications for further management of COVID-19. Patient is safe for discharge at this time with plan for mlyt-fen-krbzwzl Tylenol and/or NSAID such as ibuprofen or naproxen for fever/discomfort with dosing as per packaging. HPI, PE, diagnostics, and plan discussed with patient and family with no unanswered questions at this time. Strict return precautions given to return to the emergency department with new, worsening, or concerning emergent symptoms. Recommended to follow-up with there primary care provider in 24-48 hours for further treatment and management. Differential Diagnosis Differential Diagnoses: The differential diagnosis associated with the presentation includes But not limited to viral syndrome, pneumonia, pharyngitis, tonsillitis, allergic reaction, sepsis, malignancy Lab Data [facility] Lab Attestation statement: I reviewed the patient's lab results. Labs: Lab Results 09/30/23 Range/Units 17:51 COVID-19 (LA) Positive A (Negative) COVID-19 Clin Com See Note S. pyogenes GrpA ESTEFANI Negative (Negative) Tests considered The following testing was considered but not selected: Chest x-ray Discharge Plan Discharge Clinical Impression: COVID-19 Patient Disposition: Home, Self-Care Instructions: Upper Respiratory Infection (ED), COVID-19 (Coronavirus Disease 2019) (ED) Prescriptions: New benzonatate 100 mg capsule 100 mg PO TID PRN (Reason: cough) 4 Days Qty: 14 0RF No Action dexamethasone [Decadron] 6 mg tablet 6 mg PO DAILY Qty: 7 0RF codeine-guaifenesin 10-100 mg/5 mL liquid 10 ml PO Q6H PRN (Reason: cough) Qty: 237 0RF albuterol sulfate [ProAir HFA] 90 mcg/actuation HFA aerosol inhaler 2 puff inhalation Q4-6H PRN (Reason: shortness of breath or wheezing) Qty: 8.5 0RF azithromycin 250 mg tablet See Rx Instructions PO .COMPLEX Qty: 6 0RF Rx Instructions: take 500 mg today (day 1), then 250 mg for 4 days (days 2-5) PO albuterol sulfate 90 mcg/actuation HFA aerosol inhaler 1 inh inhalation QID Qty: 6.7 1RF Bystolic 10 mg tablet 10 mg PO DAILY clonazepam 1 mg tablet 1 mg PO BEDTIME PRN metformin 500 mg tablet 500 mg PO BID Ref[place]: [facility] [place]] [facility] [place] [facility] [place]Provider Group] [facility] [place] [facility] [Provider Group] Interventions: ED Discharge Assessment Last Done: 09/30/23 18:51 Discharge Date/Time: 09/30/23 18:55 Print Language: Surinamese
[2023-09-30 15:12] VITALS: BP 170/72; PULSE 63; RESP 20; TEMP 36.5; O2SAT 97; BMI 31.1
[2023-09-30 18:11] LABS: COVID-19 Test Positive (Negative); IDNOW Serial# 08D9AD1C; IDNOW Serial# 152EDE1D; Strep A Nucleic Acid Negative (Negative)
[2023-09-30 18:47] VITALS: BP 142/78; PULSE 89; RESP 20; TEMP 37.1; O2SAT 97
[2023-09-30 18:51] VITALS: BP 142/78; PULSE 89; RESP 20; TEMP 37.1; O2SAT 97
== END 2023-09-30 18:55 | disposition home or self-care (01) ==
PROVIDERS: Physician Assistant; Emergency Provider Emergency Medicine
DX: J02.9 Acute pharyngitis, unspecified (principal); R09.89 Other specified symptoms and signs involving the circulatory and respiratory systems; R05.9 Cough, unspecified; Z79.899 Other long term (current) drug therapy; Z11.52 Encounter for screening for COVID-19
CPT/HCPCS: 87635; 87651; 99283

== ENCOUNTER 2024-01-24 11:46 | Outpatient (REF) | payer OTHER, SELFPAY ==
--- NOTE | ~2024-01-24 | MM_ITS ---
EXAMINATION: MM SCREENING DIGITAL BREAST TOMOSYNTHESIS, BILATERAL CLINICAL INFORMATION: Screening. Asymptomatic. COMPARISON: Mammography: Comparison is made with available priors TECHNIQUE: Digital breast mammography with tomosynthesis is performed in both the craniocaudal and mediolateral oblique views along with computer-aided detection (CAD). FINDINGS: There are scattered areas of fibroglandular density (ACR BI-RADS breast composition Category b). There are no significant masses, abnormal calcifications, or other abnormalities. MM/MM tomosynthesis screening BI IMPRESSION: No mammographic evidence of malignancy. ASSESSMENT: BI-RADS BI-RADS 1 - Negative RECOMMENDATION: Routine annual mammography screening. 1 year F/U This examination should not preclude the clinical evaluation of a suspicious palpable abnormality. This patient's information was entered into a reminder system with a target due date for their next mammogram. Electronically signed by: Jinny Mesa DO 02/05/2024 10:13 AM EDT
== END 2024-01-24 11:47 | disposition home or self-care (01) ==
LOC: HO.MAMMO 11:46
PROVIDERS: PCP Internal Medicine; Visit Provider Internal Medicine
DX: Z12.31 Encounter for screening mammogram for malignant neoplasm of breast (principal)
CPT/HCPCS: 77063; 77067

== ENCOUNTER → 2024-01-24 12:00 | Outpatient (BNV) | payer OTHER, SELFPAY | PROVIDERS: PCP Internal Medicine; Visit Provider Internal Medicine | DX: Z12.31 Encounter for screening mammogram for malignant neoplasm of breast (principal) | CPT/HCPCS: 77063; 77067 ==

== ENCOUNTER 2024-02-20 14:20 | Emergency (ER) | payer OTHER, SELFPAY ==
--- NOTE | ~2024-02-20 | XR_ITS ---
EXAMINATION: XR CHEST CLINICAL INFORMATION: Cough. COMPARISON: Chest radiograph dated 04/03/2021. TECHNIQUE: Frontal view of the chest was obtained. FINDINGS: The lungs are clear. The cardiomediastinal silhouette is normal in size. There is no pleural effusion or pneumothorax. No acute osseous abnormality. XR/XR chest 1V IMPRESSION: No acute cardiopulmonary findings. Electronically signed by: Justino Peter MD 02/20/2024 04:49 PM [facility] [place]
--- NOTE | 2024-02-20 14:22 | ECG_ITS ---
Test Reason : cp Blood Pressure : / mmHG Vent. Rate : 092 BPM Atrial Rate : 092 BPM P-R Int : 176 ms QRS Dur : 078 ms QT Int : 334 ms P-R-T Axes : 000 -06 023 degrees QTc Int : 413 ms Normal sinus rhythm Inferior infarct , age undetermined Cannot rule out Anterior infarct , age undetermined Abnormal ECG When compared with ECG of 29-MAR-2021 23:29, Nonspecific T wave abnormality no longer evident in Lateral leads Referred By: Bridget Ramos Electronically Signed By:Steve Herrera
[2024-02-20 15:03] VITALS: BP 167/57; PULSE 93; RESP 20; TEMP 36.9; O2SAT 95; BMI 32.3
--- NOTE | 2024-02-20 16:21 | ED_ITS ---
HPI - URI/Sore Throat General Chief Complaint: Upper Respiratory Symptoms Stated Complaint: cough-cp Time Seen by Provider: 02/20/24 15:50 Source: patient Mode of arrival: ambulatory Limitations: no limitations History of Present Illness ED Provider: Henny Dowling PA-C HPI Narrative: 63 yo female presents to the ER for evaluation of sore throat, chest discomfort associated with coughing fits and bringing up clear/yellow phlegm for the last 1 week. She reports coughing is keeping her up at night but also occurs throughout the day. Pain in the chest is with coughing only. No fevers or chills. No known sick contacts. No abdominal pain, N/V/D, or difficulty breathing. History of recurrent bronchitis. MD elicited complaint: cough and sore throat Onset (ago): week(s) (1) Consistency: progressively worsening Severity: moderate Description of mucous: clear and watery Able to tolerate fluids by mouth: Yes Exacerbating factors: nothing Relieving factors: nothing Associated symptoms: nasal congestion, sore throat, cough and chest pain Treatments prior to arrival: none Related Data Home Medications ?Medication ?Instructions ?Recorded ?Confirmed clonazepam 1 mg tablet 1 mg PO BEDTIME PRN 08/02/20 03/14/21 metformin 500 mg tablet 500 mg PO BID 08/02/20 03/14/21 nebivolol 10 mg tablet 10 mg PO DAILY 08/02/20 03/14/21 Previous Rx's ?Medication ?Instructions ?Recorded albuterol sulfate 90 mcg/actuation 1 inh inhalation QID shortness of 03/21/21 aerosol inhaler breath or wheezing #6.7 grams azithromycin 250 mg tablet See Rx Instructions PO .COMPLEX #6 03/21/21 tabs albuterol sulfate 90 mcg/actuation 2 puff inhalation Q4-6H PRN 03/30/21 aerosol inhaler (ProAir HFA) shortness of breath or wheezing #8.5 grams codeine 10 mg-guaifenesin 100 mg/5 10 ml PO Q6H PRN cough #237 mL 03/30/21 mL oral liquid dexamethasone 6 mg tablet 6 mg PO DAILY #7 tabs 03/30/21 (Decadron) benzonatate 100 mg capsule 100 mg PO TID PRN cough 4 days #14 09/30/23 caps azithromycin 250 mg tablet See Rx Instructions PO .COMPLEX #6 02/20/24 (Zithromax Z-Jose) tabs benzonatate 100 mg capsule 100 mg PO TID PRN cough #30 caps 02/20/24 prednisone 20 mg tablet 40 mg (2 x 20 mg) PO DAILY #10 tabs 02/20/24 Allergies Allergy/AdvReac Type Severity Reaction Status Date / Time Penicillins Allergy Mild ITCHING Verified 02/20/24 15:04 glimepiride [GLIMEPIRIDE] Allergy Unknown UNKNOWN Verified 02/20/24 15:04 mirtazapine [MIRTAZAPINE] Allergy Unknown UNKNOWN Verified 02/20/24 15:04 pravastatin [Pravachol] Allergy Unknown Itching Verified 02/20/24 15:04 sertraline [SERTRALINE] Allergy Unknown UNKNOWN Verified 02/20/24 15:04 vilazodone [Viibryd] Allergy Unknown Itching Verified 02/20/24 15:04 buspirone [BUSPIRONE] AdvReac Intermediate CHEST PAIN Verified 02/20/24 15:04 amlodipine AdvReac Unknown Chest Pain Verified 02/20/24 15:04 morphine [MORPHINE] AdvReac Unknown FEELS WEAK Verified 02/20/24 15:04 oxycodone [From PERCOCET] AdvReac Unknown MAKES HER Verified 02/20/24 15:04 FEEL FUNNY wilner inhibitors Allergy Unknown Unknown Uncoded 02/20/24 15:04 Review of Systems Review of Systems: Yes all other systems are reviewed and are negative PMFSH Past Medical History Medical History Anxiety Bronchitis Depression Diabetes Essential hypertension HTN (hypertension) Non-rheumatic mitral regurgitation Other and unspecified hyperlipidemia Type 2 diabetes mellitus with unspecified complications Surgical History History of tubal ligation Previous back surgery Family History Family History Father HTN (hypertension) Stroke Mother HTN (hypertension) Stroke Social History Social History Unable to assess alcohol history related to: Unknown Alcohol intake: never Patient Tobacco Use Status: Never used Tobacco Use of substances other than those prescribed or required for medical reasons: Unknown Advance Directives: No Advance Directives Information Provided: Yes Physical Exam Vital Signs: Vital Signs: Last Vital Signs Temp 98.6 F 02/20/24 16:49 Pulse 87 02/20/24 16:49 Resp 18 02/20/24 16:49 BP 150/71 H 02/20/24 16:49 Pulse Ox 97 02/20/24 16:49 O2 Del Method Room Air 02/20/24 16:49 BMI result Body Mass Index 32.3 Appearance: Alert. Oriented X3. No acute distress. Head: normocephalic, atraumatic. Eyes: Pupils equal, round and reactive to light. ENT: Pharynx with moderate generalized erythema, No tonsillar swelling or exudate. Uvula midline. Neck: Normal inspection. Neck supple. CVS: Normal heart rate and rhythm. Pulses normal. Respiratory: No respiratory distress. Breath sounds diminished at the bases, coughing with deep inspiration. Abdomen: Soft and nontender. +BS x4 Skin: Skin warm and dry. Normal skin color. Normal skin turgor. No rashes. Extremities: No lower extremity edema. No joint swelling. Neuro/psych: Oriented X 3. Grossly normal, nonfocal. Normal speech and cognition. Medical Decision Making Medical Decision Making MDM Narrative: 63 yo female presenting with productive cough and associated chest discomfort for the last 1 week. no fevers. no chest pain at rest. no leg swelling. she has a sore throat and hx recurrent bronchitis. VSS on arrival. no wheezing but breath sounds diminished at the bases. CXR does not show any pneumonia. Viral studies delay in sending. sample sent. will treat for acute bronchitis. will call if viral testing is positive. stable for d/c home with outpatient follow up prn. Differential Diagnosis Differential Diagnoses: The differential diagnosis associated with the pres entation includes covid, flu, RSV, PNA, bronchitis, strep throat Admission/Observation Consideration of admission/observation: Escalation of care including admission/observation considered Independent Interpretation I performed an independent interpretation of an: EKG and Plain X-Ray Interpretation: no focal consolidation or infiltrate ekg with normal sinus rhythm, HR 92 bpm, no ST segment elevations or depressions. Radiology Impression Discussion of test interpretation with radiology: I have reviewed the radiologist's reading. External Record Review External record reviewed: Outpatient record, Prior outpatient labs and Prior outpatient radiology Prescription Management I considered prescription management with: Pain Medication and Antibiotic Chronic Conditions Patient?s care impacted by: Diabetes and Hypertension Critical Care Time Critical Care Time Critical Care Time: No Discharge Plan Discharge Clinical Impression: Bronchitis Patient Disposition: Home, Self-Care Instructions: Acute Bronchitis (ED) Additional Instructions: Your chest x-ray was normal. If you test positive for COVID, Flu or RSV, we will call you Take the prescribed medications as directed for acute bronchitis Rest and drink plenty of fluids. Follow up with your doctor Take over the counter cold/flu medications as needed for your symptoms. If you develop new or worsening symptoms call 911 or come back to the ER for further evaluation. Prescriptions: New azithromycin [Zithromax Z-Jose] 250 mg tablet See Rx Instructions .ROUTE .COMPLEX Qty: 6 0RF Rx Instructions: take 500 mg today (day 1), then 250 mg for 4 days (days 2-5) prednisone 20 mg tablet 40 mg PO DAILY Qty: 10 0RF benzonatate 100 mg capsule 100 mg PO TID PRN (Reason: cough) Qty: 30 0RF No Action dexamethasone [Decadron] 6 mg tablet 6 mg PO DAILY Qty: 7 0RF codeine-guaifenesin 10-100 mg/5 mL liquid 10 ml PO Q6H PRN (Reason: cough) Qty: 237 0RF albuterol sulfate [ProAir HFA] 90 mcg/actuation HFA aerosol inhaler 2 puff inhalation Q4-6H PRN (Reason: shortness of breath or wheezing) Qty: 8.5 0RF benzonatate 100 mg capsule 100 mg PO TID PRN (Reason: cough) 4 Days Qty: 14 0RF azithromycin 250 mg tablet See Rx Instructions PO .COMPLEX Qty: 6 0RF Rx Instructions: take 500 mg today (day 1), then 250 mg for 4 days (days 2-5) PO albuterol sulfate 90 mcg/actuation HFA aerosol inhaler 1 inh inhalation QID Qty: 6.7 1RF Bystolic 10 mg tablet 10 mg PO DAILY clonazepam 1 mg tablet 1 mg PO BEDTIME PRN metformin 500 mg tablet 500 mg PO BID Referrals: Andrea Sommer III, MD [Primary Care Provider] - Print Language: Ukrainian
[2024-02-20 16:49] VITALS: BP 150/71; PULSE 87; RESP 18; TEMP 37; O2SAT 97
[2024-02-20 17:54] VITALS: BP 150/71; PULSE 87; RESP 18; TEMP 37; O2SAT 97
[2024-02-20 18:16] LABS: Influenza A PCR NEGATIVE (Negative); Influenza B PCR NEGATIVE (Negative); Resp Syncy Virus RNA Qual PCR NEGATIVE (Negative); SARS COV2 PCR INHOUSE NEGATIVE (Negative)
== END 2024-02-20 17:55 | disposition home or self-care (01) ==
PROVIDERS: Emergency Provider Emergency Medicine; PCP Internal Medicine
DX: J40 Bronchitis, not specified as acute or chronic (principal); R05.9 Cough, unspecified; R07.89 Other chest pain; J02.9 Acute pharyngitis, unspecified; R09.81 Nasal congestion; Z79.899 Other long term (current) drug therapy; Z03.818 Encounter for observation for suspected exposure to other biological agents ruled out
CPT/HCPCS: 0241U; 71045; 93005; 99283; 99284

== ENCOUNTER → 2024-02-20 14:22 | Outpatient (BNV) | payer OTHER, SELFPAY | PROVIDERS: Emergency Provider Emergency Medicine; PCP Internal Medicine; Visit Provider Internal Medicine Cardiovascular Disease | DX: R94.31 Abnormal electrocardiogram [ECG] [EKG] (principal) | CPT/HCPCS: 93010 ==

== ENCOUNTER 2024-09-28 13:24 | Emergency (ER) | payer OTHER, SELFPAY ==
--- NOTE | ~2024-09-28 | XR_ITS ---
EXAMINATION: XR CHEST CLINICAL INFORMATION: cough COMPARISON: 02/20/2024. TECHNIQUE: 2 views of the chest were obtained. FINDINGS: The cardiac, hilar, and mediastinal contours are normal. Mild aortic mural calcification. The lungs are clear bilaterally. There is no pneumothorax or pleural effusion. There is no focal osseous or soft tissue abnormality. XR/XR chest 2V IMPRESSION: No active pulmonary disease. Electronically signed by: Yaron Trinidad MD 09/28/2024 01:55 PM EDT
[2024-09-28 13:32] VITALS: BP 142/64; PULSE 76; RESP 16; TEMP 37.1; O2SAT 97; BMI 30.8
--- NOTE | 2024-09-28 13:32 | ED_ITS ---
HPI - URI/Sore Throat General Chief Complaint: Upper Respiratory Symptoms Stated Complaint: Stuffy Nose Cough Fever Time Seen by Provider: 09/28/24 18:00 Source: patient, RN notes reviewed, old records reviewed and regulatory compliance coordinator Mode of arrival: ambulatory Limitations: language barrier History of Present Illness ED Provider: Derick HPI Narrative: 64-year-old female presents for evaluation of cough, congestion and shortness of breath patient reports her symptoms started 6 days ago. She reports she gets similar episodes about once per year. She has had previous treatment with azithromycin and fluticasone nasal spray with good relief of her symptoms. Denies any fevers, chills no recent travel. She is a nonsmoker denies any chest pain. She reports her cough is productive of yellow sputum Related Data Home Medications ?Medication ?Instructions ?Recorded ?Confirmed clonazepam 1 mg tablet 1 mg PO BEDTIME PRN 08/02/20 03/14/21 metformin 500 mg tablet 500 mg PO BID 08/02/2003/14 nebivolol 10 mg tablet 10 mg PO DAILY 08/02/2010/26 Previous Rx's ?Medication ?Instructions ?Recorded albuterol sulfate 90 mcg/actuation 1 inh inhalation QI D shortness of 03/21/21 aerosol inhaler breath or wheezing #6.7 gram s azithromycin 250 mg tablet See Rx Instructions PO .COM PLEX #6 03/21/21 tabs albuterol sulfate 90 mcg/actuation 2 puff inhalation Q 4-6H PRN 03/30/21 aerosol inhaler (ProAir HFA) shortness of breath or wh eezing #8.5 grams codeine 10 mg-guaifenesin 100 mg/5 10 ml PO Q6H PRN co ugh #237 mL 03/30/21 mL oral liquid dexamethasone 6 mg tablet 6 mg PO DAILY #7 tabs (Decadron) benzonatate 100 mg capsule 100 mg PO TID PRN cough 4 d ays #14 09/30/23 caps azithromycin 250 mg tablet See Rx Instructions PO .COM PLEX #6 02/20/24 (Zithromax Z-Jose) tabs benzonatate 100 mg capsule 100 mg PO TID PRN cough #30 caps 02/20/24 prednisone 20 mg tablet 40 mg (2 x 20 mg) PO DAILY # 10 tabs 02/20/24 azithromycin 250 mg tablet See Rx Instructions PO .COM PLEX #6 09/28/24 tabs benzonatate 200 mg capsule 200 mg PO TID PRN cough #20 caps 09/28/24 fluticasone propionate 50 2 spray intranasal DAILY #16 grams 09/28/24 mcg/actuation nasal spray,suspension (24 Hour Allergy Relief) Allergies Allergy/AdvReac Type Severity Reaction Status Date / Time Penicillins Allergy Mild ITCHING Verified 09/28/24 13:34 glimepiride (GLIMEPIRIDE) Allergy Unknown UNKNOWN Verified 09/28/24 13:34 mirtazapine (MIRTAZAPINE) Allergy Unknown UNKNOWN Verified 09/28/24 13:34 pravastatin (Pravachol) Allergy Unknown Itching Verified 09/28/24 13:34 sertraline (SERTRALINE) Allergy Unknown UNKNOWN Verified 09/28/24 13:34 vilazodone (Viibryd) Allergy Unknown Itching Verified 09/28/24 13:34 buspirone (BUSPIRONE) AdvReac Intermediate CHEST PAIN Verified 09/28/24 13:34 amlodipine AdvReac Unknown Chest Pain Verified 09/28/24 13:34 morphine (MORPHINE) AdvReac Unknown FEELS WEAK Verified 09/28/24 13:34 oxycodone (From PERCOCET) AdvReac Unknown MAKES HER Verified 09/28/24 13:34 FEEL FUNNY wilner inhibitors Allergy Unknown Unknown Uncoded 02/20/24 15:04 Review of Systems Constitutional: Constitutional: Denies body ache(s), Denies chills, Denies fever(s) and Denies headache(s) ENT: Reports facial pain, Denies headache(s), Denies throat swelling and Denies tongue swelling Cardiovascular: Cardiovascular: Denies chest pain, Reports dyspnea and Denies dyspnea on exertion Respiratory: Respiratory: Reports change in phlegm color, Reports cough, Reports excessive phlegm production, Reports dyspnea and Denies dyspnea on exertion Gastrointestinal: Gastrointestinal: Denies abdominal pain, Denies nausea and Denies vomiting Musculoskeletal: Musculoskeletal: Denies back pain Integumentary/Breasts: Skin/Breast: Denies rash Neurologic: Denies headache(s) Allergic/Immunologic: Allergic/Immunologic: Denies throat swelling and Denies tongue swelling PMFSH Past Medical History Medical History Anxiety Bronchitis Depression Diabetes Essential hypertension HTN (hypertension) Non-rheumatic mitral regurgitation Other and unspecified hyperlipidemia Type 2 diabetes mellitus with unspecified complications Surgical History History of tubal ligation Previous back surgery Family History Family History Father HTN (hypertension) Stroke Mother HTN (hypertension) Stroke Social History Social History Unable to assess alcohol history related to: Unknown Alcohol intake: never Patient Tobacco Use Status: Never used Tobacco Advance Directives: No Advance Directives Information Provided: Yes Physical Exam Vital Signs: Vital Signs: Last Vital Signs Temp 98.5 F 09/28/24 19:05 Pulse 62 09/28/24 19:05 Resp 18 09/28/24 19:05 BP 154/72 H 09/28/24 19:05 Pulse Ox 100 09/28/24 19:05 O2 Del Method Room Air 09/28/24 19:05 BMI result Body Mass Index 30.8 Const: General: healthy appearing, comfortable, no acute distress, alert and awake Nutritional Appearance: well nourished Orientation/consciousness: patient oriented x3 HEENT: Head: Yes normocephalic and Yes atraumatic Throat: Yes posterior oropharynx normal Eyes: Eyelids: Yes eyelids normal Conjunctivae: conjunctivae normal Sclerae: sclerae normal Corneas: corneas normal Pupils: Equal, round and reactive pupils present EOM: EOMs intact bilaterally Neck: Neck: Yes full ROM Resp: Effort & Inspection: normal respiratory effort, able to speak in complete sentences, no audible wheezes and not labored Auscultation: clear to auscultation bilaterally Cardio: Rate: regular rate Rhythm: regular rhythm GI: Inspection: No distended Palpation (GI): Soft to palpation, not firm, nontender, no guarding and not rigid Skin: General skin exam: elasticity normal Neuro: General: patient oriented x3 Cranial nerves: Yes Equal, round and reactive pupils present and Yes Bilaterally intact EOM present Cognition (Neuro): normal cognition Course Course Course Narrative: This is an RME: Additional HPI, ROS, PE not included below will be deferred to primary provider. RME assessment and note performed by: Corin Richards PA-C This is a [id number]-female, hx of HTN, DM, who presents to the ER with complaints of nasal congestion, productive cough with yellow sputum x 6 days. No fevers. No CP at rest, pain with cough. No sick contacts. Plan: Viral swabs, CXR Medical Decision Making Medical Decision Making MDM Narrative: 64-year-old female presents for evaluation of cough, congestion shortness of breath. Her workup is reviewed, vital signs are stable. She is negative for influenza, COVID-19, RSV, chest x-ray is clear. We will treat her with Tessalon Perles and fluticasone for upper respiratory infection. I did give her a prescription for azithromycin but encouraged her to avoid using it unless her symptoms do not improve with the next few days. Differential Diagnosis Differential Diagnoses: The differential diagnosis associated with the presentation includes Upper respiratory infection Bronchitis Pneumonia Allergic rhinitis Lab Data Labs: Lab Results 09/28/24 09/28/24 Range/Units 14:21 18:07 POC Glucose 106 (60-115) mg/dL Influenza Type A (PCR) NEGATIVE (Negative) Influenza Type B (PCR) NEGATIVE (Negative) RSV RNA Qual (PCR) NEGATIVE (Negative) SARS-CoV-2 RNA (RT-PCR) NEGATIVE (Negative) Independent Interpretation I performed an independent interpretation of an: Plain X-Ray Interpretation: agree with Radiology interpretation Radiology Impression Discussion of test interpretation with radiology: I have reviewed the radiologist's reading. Radiologist Impression: FINDINGS: The cardiac, hilar, and mediastinal contours are normal. Mild aortic mural calcification. The lungs are clear bilaterally. There is no pneumothorax or pleural effusion. There is no focal osseous or soft tissue abnormality. XR/XR chest 2V IMPRESSION: No active pulmonary disease. Electronically signed by: Yaron Trinidad MD 09/28/2024 01:55 PM EDT Discharge Plan Discharge Clinical Impression: Acute upper respiratory infection Patient Disposition: Home, Self-Care Instructions: Upper Respiratory Infection (ED) Additional Instructions: your chest x-ray was clear. You do not have pneumonia or bronchitis. You tested negative for COVID, influenza, RSV. You may use benzonatate as needed for cough. You may use the Flonase nasal spray as needed for congestion. I did send a prescription for azithromycin, I recommend trying the cough medicine and allergy spray for 2 days if you are not better than you may begin the azithromycin pack follow-up with your primary doctor, return for new or worsening symptoms Prescriptions: New azithromycin 250 mg tablet See Rx Instructions .ROUTE .COMPLEX Qty: 6 0RF Rx Instructions: For 250 mg dose pack: take 500 mg today (day 1), then 250 mg for 4 days (days 2-5) benzonatate 200 mg capsule 200 mg PO TID PRN (Reason: cough) Qty: 20 0RF fluticasone propionate [24 Hour Allergy Relief] 50 mcg/actuation spray,suspension 2 spray intranasal DAILY Qty: 16 0RF Rx Instructions: administer into each nostril No Action dexamethasone [Decadron] 6 mg tablet 6 mg PO DAILY Qty: 7 0RF codeine-guaifenesin 10-100 mg/5 mL liquid 10 ml PO Q6H PRN (Reason: cough) Qty: 237 0RF albuterol sulfate [ProAir HFA] 90 mcg/actuation HFA aerosol inhaler 2 puff inhalation Q4-6H PRN (Reason: shortness of breath or wheezing) Qty: 8.5 0RF azithromycin [Zithromax Z-Jose] 250 mg tablet See Rx Instructions .ROUTE .COMPLEX Qty: 6 0RF Rx Instructions: take 500 mg today (day 1), then 250 mg for 4 days (days 2-5) prednisone 20 mg tablet 40 mg PO DAILY Qty: 10 0RF benzonatate 100 mg capsule 100 mg PO TID PRN (Reason: cough) Qty: 30 0RF benzonatate 100 mg capsule 100 mg PO TID PRN (Reason: cough) 4 Days Qty: 14 0RF azithromycin 250 mg tablet See Rx Instructions PO .COMPLEX Qty: 6 0RF Rx Instructions: take 500 mg today (day 1), then 250 mg for 4 days (days 2-5) PO albuterol sulfate 90 mcg/actuation HFA aerosol inhaler 1 inh inhalation QID Qty: 6.7 1RF Bystolic 10 mg tablet 10 mg PO DAILY clonazepam 1 mg tablet 1 mg PO BEDTIME PRN metformin 500 mg tablet 500 mg PO BID Interventions: ED Discharge Assessment Last Done: 09/28/24 19:05 Print Language: Indonesian
[2024-09-28 15:05] LABS: Influenza A PCR NEGATIVE (Negative); Influenza B PCR NEGATIVE (Negative); Resp Syncy Virus RNA Qual PCR NEGATIVE (Negative); SARS COV2 PCR INHOUSE NEGATIVE (Negative)
[2024-09-28 17:39] VITALS: BP 154/72; PULSE 62; RESP 18; TEMP 36.9; O2SAT 100
--- OUTSIDE RECORDS SUMMARY | 2024-09-28 17:51 | XMS_ITS | Encounter Summary ---
Author Organization [employer] [facility] Address [address] [place] [address] Care Team Providers Care Box Tender Name Role Phone Unavailable Primary Care Provider Unavailabl e Encounter Details Date Type Department Care Team (Latest Contact Info) Description 02/06/2021 Abstract [facility] CONVERSIONS Dental, Provider, DDS Social History Tobacco Use Types Packs/Day Years Used Date Smoking Tobacco: Never Assessed Comments Unknown Sex and Gender Information Value Date Recorded Sex Assigned at Female 02/05/2022 10:14 AM EDT Legal Sex Female 10:14 AM EDT Gender Identity Female 02/05/2022 10:14 AM EDT Sexual Orientation Straight 02/05/2022 10 :14 AM EDT documented as of this encounter Plan of Treatment Upcoming Encounters Date Type Department Care Team (Late st Contact Info) Description 11/10/2024 2:30 PM EDT Office Visit [facility] [address] [place] [address] Nicolas Loya, DDS [address] [place] [address] 03/01/2025 2:00 PM EST Office Visit [facility] [address] [place] [address] Gio, Laura [address] [place] [address] documented as of this encounter Visit Diagnoses Not on filedocumented in this encounter
[2024-09-28 18:10] LABS: Glucose, Whole Blood 106 mg/dL (60-115)
[2024-09-28 19:05] VITALS: BP 154/72; PULSE 62; RESP 18; TEMP 36.9; O2SAT 100
== END 2024-09-28 19:05 | disposition home or self-care (01) ==
PROVIDERS: Physician Assistant Medical; Emergency Provider Emergency Medicine; PCP Internal Medicine
DX: R05.9 Cough, unspecified (principal); R50.9 Fever, unspecified; R06.02 Shortness of breath; Z79.899 Other long term (current) drug therapy; Z03.818 Encounter for observation for suspected exposure to other biological agents ruled out
CPT/HCPCS: 0241U; 71046; 82947; 99283

== ENCOUNTER → 2024-09-28 13:34 | Outpatient (BNV) | payer OTHER, SELFPAY | PROVIDERS: PCP Internal Medicine; Visit Provider Radiology Diagnostic Radiology | DX: R05.9 Cough, unspecified (principal) | CPT/HCPCS: 71046 ==